=== PATIENT | female | born 1995 | race Caucasian/White ===

== ENCOUNTER 2022-05-29 08:57 | Outpatient (CLI) | payer OTHER, SELFPAY | END 2022-05-29 08:58 | disposition home or self-care (01) | PROVIDERS: Visit Provider Registered Nurse | DX: Z01.419 Encounter for gynecological examination (general) (routine) without abnormal findings (principal); Z13.6 Encounter for screening for cardiovascular disorders; Z13.1 Encounter for screening for diabetes mellitus | CPT/HCPCS: 80061; 82947 ==

== ENCOUNTER 2024-03-25 12:34 | Outpatient (CLI) | payer OTHER, SELFPAY ==
--- NOTE | 2024-03-25 13:00 | CRLHL7_ITS ---
For Patients: As a result of the Century Cures Act, medical imaging exams and procedure reports are released immediately into your electronic medical record. You may view this report before your referring provider. If you have questions, please contact your health care provider. INDICATION: First trimester dating and viability. TECHNIQUE: Ultrasound OB pelvis transabdominal and transvaginal. Real-time chance-scale imaging of the pelvis was performed. COMPARISON: None. FINDINGS: Intrauterine gestation: Single. heart activity (bpm): None detected. Ozone-rump length: 1.1 cm. Estimated ultrasound age: 7 weeks, 1 day. ALONDRA by ultrasound: 11/05/2024. Estimated gestational age by LMP: 10 weeks, 6 days Yolk sac: Not visualized. Perigestational hemorrhage: None. Ovaries and adnexa: Right corpus luteum. Left ovary is not visualized. Suspicious pelvic fluid collections: None. Other: There is a left uterine fibroid measuring 2.1 x 3 x 2.1 centimeters, with possible pedunculated stalk (FIGO 7). IMPRESSION: Bates intrauterine . Ozone-rump length is 1.1 centimeters without evidence of heart tones, which is diagnostic for early loss. Estimated gestational age by crown-rump length is discordant with estimated gestational age by LMP. These results were communicated to Nicholas by Jesús on 03/25/2024 at 2:07 p.m. Dictated by Lalita Espinosa MD @ 03/25/2024 2:08:08 PM (Electronically Signed)
== END 2024-03-25 12:35 | disposition home or self-care (01) ==
LOC: US 12:35
PROVIDERS: Visit Provider Registered Nurse
DX: Z34.91 Encounter for supervision of normal pregnancy, unspecified, first trimester (principal); Z3A.10 10 weeks gestation of pregnancy
CPT/HCPCS: 76817; 86850; 86900; 86901

== ENCOUNTER 2024-03-29 15:07 | Outpatient (CLI) | payer OTHER, SELFPAY | END 2024-03-29 15:08 | disposition home or self-care (01) | LOC: NFLDREF 15:08 | PROVIDERS: Visit Provider Obstetrics & Gynecology | DX: O02.1 Missed abortion (principal); Z67.11 Type A blood, Rh negative | CPT/HCPCS: J2791 ==

== ENCOUNTER 2024-03-30 11:21 | Outpatient (CLI) | payer OTHER, SELFPAY | END 2024-03-30 11:22 | disposition home or self-care (01) | LOC: US 11:22 | PROVIDERS: Visit Provider Obstetrics & Gynecology | DX: O02.1 Missed abortion (principal); R93.89 Abnormal findings on diagnostic imaging of other specified body structures; D25.2 Subserosal leiomyoma of uterus; N83.292 Other ovarian cyst, left side | CPT/HCPCS: 76817 ==

== ENCOUNTER 2024-03-31 09:59 | Day surgery (SDC) | payer OTHER, SELFPAY ==
[2024-03-31 10:27] VITALS: BMI 24.3
[2024-03-31 10:27] LABS: Hemoglobin* 14.1 gm/dL (12.0-16.0)
[2024-03-31 10:31] VITALS: BP 130/87; PULSE 80; RESP 20; TEMP 37; O2SAT 98
[2024-03-31] MEDS: SODIUM CHLORIDE 0.9 % (FLUSH) 10 ML SYRINGE IVF (10:42)
[2024-03-31] MEDS: DOXYCYCLINE HYCLATE 200 MG in 0.9 % SODIUM CHLORIDE 250 ml 250 ML 250 MG IVPB (10:45)
--- NOTE | 2024-03-31 10:45 | W.PM.H&PU ---
History & Physical Update History & Physical Update H&P Updates: Had heavy bleeding stating 03/29/24. Received RhoGAM in clinic that day. She passed a large sac/tissue later that night. Pelvic US on 03/30: The uterus is anteverted and measures 8.5 x 4.6 x 7.3 centimeters. IMPRESSION: 1. Heterogeneous thickened endometrial stripe measuring up to 21 millimeters with a possible small amount of internal vascular flow at its periphery. Findings are compatible with retained products of conception. 2. 2.9 centimeter fundal uterine fibroid which is either subserosal or subserosal and pedunculated. 3. Simple appearing 1.5 centimeter left paraovarian cyst. Decision made to perform suction dilation and curettage for retained products of conception. Currently, having a light bleeding.
[2024-03-31] MEDS: 0.9 % SODIUM CHLORIDE 500 ML 500 ML IV (10:51)
[2024-03-31] MEDS: SCOPOLAMINE 1 MG/3 DAY PATCH 1 PATCH TRANSDERMA (11:24)
[2024-03-31] MEDS: LIDOCAINE 1%-EPI 1:100,000 10 ML INFILTRATI (12:00)
[2024-03-31 12:19] VITALS: BP 105/51; PULSE 87; RESP 16; TEMP 36.9; O2SAT 99
--- NOTE | 2024-03-31 12:19 | W.ANESCHARGE ---
Anesthesia Charges Start Date/Time Anesthesia Start Date: 03/31/24 Anesthesia Start Time: 11:42 Stop Date/Time Anesthesia Stop Date: 03/31/24 Anesthesia Stop Time: 12:16 Coding CPT Codes CPT Codes: ANESTH VAGINAL PROCEDURES - 59793 ([id number]) P1 - NORMAL HEALTHY PATIENT, QK - VIDEO TAPE DUPLICATOR 2-4 CNCRNT ANES PROC, QX - CONSULTING SYSTEMS ENGINEER SVRenetta W/ MED DIRECTION
--- NOTE | 2024-03-31 12:32 | W.ANESCHARGE ---
Anesthesia Charges Start Date/Time Anesthesia Start Date: 03/31/24 Anesthesia Start Time: 11:42 Stop Date/Time Anesthesia Stop Date: 03/31/24 Anesthesia Stop Time: 12:16 Coding CPT Codes CPT Codes: ANESTH INC/MISSED AB PROC - 81016 ([id number]) QX - PLATFORM MAN AIDAN W/ MED DIRECTION, QK - SOLE BLACKER 2-4 CNCRNT ANES PROC, P1 - NORMAL HEALTHY PATIENT
[2024-03-31 12:35] VITALS: BP 106/65; PULSE 66; RESP 16; O2SAT 96
[2024-03-31 12:50] VITALS: BP 110/69; PULSE 69; RESP 16; O2SAT 100
--- NOTE | 2024-03-31 13:17 | SUR.PHASEII ---
instructed me NOT to give the Rhogam because she, Dr. High has already given it to the patient in the clinic. Dr. High said she was having trouble dcing the order however
--- NOTE | 2024-03-31 13:49 | W.PM.GYNPROC ---
Procedure Note Time Seen by Provider: 13:49 Date of procedure: 03/31/24 Will [facility] bill your pro fee for this procedure?: Yes Procedure: DILATION AND CURETTAGE PREOPERATIVE DIAGNOSIS: 1. Spontaneous missed 2. Retained products of conception POSTOPERATIVE DIAGNOSIS: Same PROCEDURE: 1. EUA 2. Suction dilation and curettage SURGEON: Lexy High MD ANESTHESIA: MAC, Local FINDINGS: 1. An anteverted mobile at 5 weeks uterus, no adnexal masses on EUA 2. Normal external genitalia, cervix 0.5 mm dilated with blood clots FLUIDS: 450 cc ESTIMATED BLOOD LOSS: 20 cc URINE OUTPUT: 30 cc COMPLICATIONS: None PREOP ANTIBIOTIC: 200 mg Doxycycline SPECIMEN: 1. Retained products of conception INDICATIONS: Trish 29yo , with diagnosis of spontaneous missed and retained products of conception. DESCRIPTION OF PROCEDURE: The patient was taken to the operating room where general anesthesia was administered. She was prepared and draped in normal sterile fashion in the dorsal lithotomy position in [facility], taking care to avoid lower extremity hyperextension, hyperflexion or compression. A surgical time-out was performed with the entire operative staff per protocol. Perioperative antibiotics were given and pneumoboots were placed and activated. EUA revealed the above findings. Bladder was drained with a straight cath. A speculum was placed in the patient's vagina and an allis clamp was placed on the anterior lip of the cervix. The cervix was gently dilated to a 7 Macedonian diameter to accommodate the 7 suction curettage. The suction curettage was then inserted under direct visualization. The uterus was then gently suction curetted and rotated to clear the uterus of products of conception. This was performed until a gritty texture was noted and the uterus was cleared of all remaining products of conception. There was minimal bleeding noted after the suction curettage was removed. The Allis was removed from the anterior lip of the cervix and excellent hemostasis was noted. All instruments were removed. Debrief performed per protocol and specimen reviewed. Specimen was sent to pathology. The patient tolerated the procedure well. Sponge, lap and needle counts were correct x 2. The patient was taken to the recovery room in stable condition. Debreif performed
== END 2024-03-31 13:08 | disposition home or self-care (01) ==
PROVIDERS: Visit Provider Obstetrics & Gynecology
PROC: (CPT 59820; principal; 2024-03-31 11:30)
DX: O02.1 Missed abortion (principal); O03.4 Incomplete spontaneous abortion without complication
CPT/HCPCS: 59820; 00940; 01965; 36415; 85018; 86850; 86870; 86900; 86901; 88305; A9270; J1100; J1885; J2250; J2405; J3010; J7030; J7050